=== PATIENT | male | born 1985 | race Hispanic/Latino ===

== ENCOUNTER 2025-01-27 20:42 | Emergency (ER) | payer BC ==
[~2025-01-27] VITALS: Ht 160 cm; Wt 82.1 kg
[2025-01-27 21:10] VITALS: TEMP 97.9
[2025-01-27] MEDS: TETANUS/DIPHTHERIA TOX ADULT 0.5 ML SYR IM ONE (22:43)
[2025-01-27] MEDS ORDERED: CYCLOBENZAPRINE5 MG PO (23:19)
[2025-01-27] MEDS ORDERED: NAPROSYN500 MG PO (23:19)
[2025-01-27] MEDS ORDERED: KETOROLAC TROMETHAMINE 60 MG/2 ML VIAL ONE (23:24)
[2025-01-27] MEDS: ORPHENADRINE CITRATE 30 MG/ML VIAL IM ONE (23:31)
[2025-01-27] MEDS: KETOROLAC TROMETHAMINE 60 MG/2 ML VIAL IM ONE (23:32)
[2025-01-27 23:33] VITALS: PULSE 54; RESP 16; O2SAT 99
== END 2025-01-28 00:04 | disposition home or self-care (01) ==
LOC: ER 21:23
DX: S16.1XXA Strain of muscle, fascia and tendon at neck level, initial encounter (principal); S00.83XA Contusion of other part of head, initial encounter; S50.312A Abrasion of left elbow, initial encounter; S90.812A Abrasion, left foot, initial encounter; S30.810A Abrasion of lower back and pelvis, initial encounter; V89.2XXA Person injured in unspecified motor-vehicle accident, traffic, initial encounter; Y93.55 Activity, bike riding; Y92.488 Other paved roadways as the place of occurrence of the external cause
CPT/HCPCS: 70450; 71045; 72125; 73030; 73080; 73110; 73130; 73502; 73552; 73562; 73590; 73610; 73630; 90471; 90714; 99283; J1885; J2360